=== PATIENT | male | born 1965 | race Caucasian/White ===

== ENCOUNTER 2018-03-21 19:14 | Emergency (ER) | payer OTHER ==
[2018-03-21 19:22] VITALS: BP 152/72
--- NOTE | 2018-03-21 19:40 | EDPHY ---
H & P Stated Complaint: R arm elbow pain from fall, Large bruise on R arm, sent by PCP Time Seen by Provider: 03/21/18 19:39 HPI/ROS: CHIEF COMPLAINT: Right elbow pain, forearm ecchymosis HISTORY OF PRESENT ILLNESS: The patient is referred to the emergency department for evaluation of right elbow pain and forearm ecchymosis. The patient fell several days ago onto his right elbow. He initially had a fairly large hematoma per his report. The patient developed fairly extensive ecchymosis on the forearm today which prompted his referral to the ED. He denies any acute numbness or weakness. He continues to have tenderness over his right olecranon. REVIEW OF SYSTEMS: A comprehensive 10 point review of systems is otherwise negative aside from elements mentioned in the history of present illness. Source: Patient - Personal History Current Tetanus Diphtheria and Acellular Pertussis (TDAP): Yes - Medical/Surgical History Hx Asthma: No Hx Chronic Respiratory Disease: No Hx Diabetes: No Hx Cardiac Disease: No Hx Renal Disease: No Hx Cirrhosis: No Hx Alcoholism: No Hx HIV/AIDS: No Hx Splenectomy or Spleen Trauma: No Other PMH: Denies - Social History Smoking Status: Never smoked - Physical Exam Exam: General Appearance: Alert, no distress Head: Atraumatic Eyes: Pupils equal, round, reactive ENT, Mouth: No hemotympanum, no oral trauma Neck: Nontender, trachea midline Respiratory: No chest wall tender, no subcutaneous air, lungs clear bilaterally Cardiovascular: Regular rate and rhythm Abdomen: Abdomen is soft and nontender, pelvis stable Skin: Extensive ecchymosis and bruising noted to the right forearm Back: No midline T/L/S pain Extremities: Tenderness to palpation over right olecranon, 2+ radial and ulnar pulses noted bilaterally. Compartments are supple bilateral upper extremities Neurological: A&Ox3, normal motor function, normal sensory exam Constitutional: Initial Vital Signs Temperature (C) 36.8 C 03/21/18 19:19 Heart Rate 81 03/21/18 19:19 Respiratory Rate 18 03/21/18 19:19 Blood Pressure 152/72 H 03/21/18 19:19 O2 Sat (%) 95 03/21/18 19:19 O2 Delivery Mode Room Air Allergies/Adverse Reactions: No Known Allergies Allergy (Unverified 03/21/18 19:19) Home Medications: Medication Instructions Recorded Azithromycin [Zithromax] 250 mg PO DAILY #4 tab 11/27/15 Indomethacin [Indocin 25 mg (*)] 50 mg PO QID #20 cap 11/27/15 predniSONE 40 mg PO DAILY 3 Days tablet 11/27/15 Medical Decision Making - Diagnostics Imaging Results: Right elbow x-ray: Images interpreted and reviewed by myself. Impression: Negative for acute fracture ED Course/Re-evaluation: Patient presents to the ED with ecchymosis to his right forearm following a mechanical fall. The patient has no evidence of an obvious fracture. I do believe that he has resolving hematoma which has resulted in ecchymosis extending and tracking through the subcutaneous tissues in the forearm. He has no clinical evidence of an arterial injury, compartment syndrome or DVT. Patient is advised to follow up with Orthopedic surgery for any ongoing symptoms of pain or immobility. He is advised to return to the ED for any increasing pain, numbness, fever, tense compartments or other concerns. Differential Diagnosis: Differential diagnosis considered includes fracture, sprain, dislocation Departure - Departure Disposition: Home, Routine, Self-Care Clinical Impression: Traumatic hematoma of forearm Condition: Good Instructions: Hematoma (ED) Additional Instructions: 1. Your x-ray demonstrates no evidence of an acute fracture. 2. Return to the ED for markedly increasing pain, tense compartments involving your forearm, hand or bicep. 3. Follow up with the orthopedic surgeon you have been referred to for any persistent mild pain, immobility or other concerns. Referrals: Krishna Whitehead MD [Medical Doctor] - As per Instructions
== END 2018-03-21 20:55 | disposition home or self-care (01) ==
DX: S50.01XA Contusion of right elbow, initial encounter (principal); W19.XXXA Unspecified fall, initial encounter